=== PATIENT | male | born 1975 | race Caucasian/White ===

== ENCOUNTER 2022-11-10 17:22 | Emergency (ER) | payer SELFPAY ==
[~2022-11-10] VITALS: Ht 177.8 cm; Wt 79.4 kg
[2022-11-10] MEDS ORDERED: IV NORMAL SALINE 1000 ML BAG IV ONE (17:45)
--- NOTE | 2022-11-10 17:50 | NUR ---
patient seen by ER physician for evaluation
[2022-11-10 18:05] LABS: HEMATOCRIT 44.8 % (36.7-47.1); MEAN CORPUSCULAR HEMOGLOBIN 31.6 uug (23.8-33.4); MEAN CORPUSCULAR VOLUME 92.2 fL (73.0-96.2); PLATELET COUNT (AUTO) 244 K/uL (152-348)
[2022-11-10 18:17] LABS: CARBON DIOXIDE 25 mmol/L (21-32); CHLORIDE 105 mmol/L (98-107); CREATININE 0.6 mg/dL (0.6-1.3); GLUCOSE 93 mg/dL (74-106); POTASSIUM 4.7 mmol/L (3.5-5.1); UREA NITROGEN, BLOOD 6 mg/dL (7-18)
[2022-11-10 18:22] LABS: ETHANOL 356 MG/DL (0-0)
[2022-11-10 18:23] LABS: ALANINE AMINOTRANSFERASE 22 U/L (16-63); ALKALINE PHOSPHATASE 90 U/L (50-136); ASPARTATE AMINOTRANSFERASE 37 U/L (15-37); BILIRUBIN,TOTAL 0.2 mg/dL (0.2-1.0); TOTAL PROTEIN, SERUM 6.9 g/dL (6.4-8.2)
[2022-11-10 18:25] LABS: BILIRUBIN,DIRECT < 0.1 mg/dL (0.0-0.2)
--- NOTE | 2022-11-10 22:11 | NUR ---
picked patient at approx 2200hrs - clinically stable at the time of discharge. IV Line removed, pressure applies and dressing clean, dry and intact.
[2022-11-10 22:12] VITALS: BP 128/65
== END 2022-11-10 22:00 | disposition home or self-care (01) ==
LOC: ER 17:22
DX: F10.121 Alcohol abuse with intoxication delirium (principal); Y90.8 Blood alcohol level of 240 mg/100 ml or more
CPT/HCPCS: 80076; 80048; 85025; 36415; 70450; 99284; 96360; 80320; J7040; A4663; G0480